=== PATIENT | female | born 1975 | race African-American/Black ===

== ENCOUNTER 2018-03-31 12:24 | Outpatient (CLI) | payer BC | END 2018-03-31 12:25 | disposition home or self-care (01) | LOC: BICMAMMO 12:24 | PROVIDERS: ATTEND Nurse Practitioner Family | DX: Z12.31 Encounter for screening mammogram for malignant neoplasm of breast (principal); N64.89 Other specified disorders of breast | CPT/HCPCS: 77063; 77067 ==

== ENCOUNTER 2018-04-28 09:59 | Outpatient (CLI) | payer BC | END 2018-04-28 10:00 | disposition home or self-care (01) | LOC: BICMAMMO 09:59 → EDSTATUS 10:00 → BICMAMMO 10:00 | PROVIDERS: ATTEND Nurse Practitioner Family | DX: R92.8 Other abnormal and inconclusive findings on diagnostic imaging of breast (principal) | CPT/HCPCS: G0279 ==